=== PATIENT | female | born 1985 | race African-American/Black ===

== ENCOUNTER 2024-10-16 17:21 | Emergency (ER) | payer MEDICAID ==
[2024-10-16] MEDS ORDERED: FAMOTIDINE 20 MG TAB ONE (18:04)
[2024-10-16] MEDS ORDERED: METHYLPREDNISOLONE 125 MG INJ ONE (18:04)
[2024-10-16] MEDS ORDERED: CETIRIZINE HCL 5 MG TABLET ONE (18:07)
--- NOTE | 2024-10-16 18:15 | EDPHYS ---
Physician Documentation [facility] Name: Dalia Castillo Age: 39 yrs Sex: Female : 1985 Arrival Date: 10/16/2024 Time: 17:21 Bed DX3 Private MD: ED Physician Dm Hood HPI: 10/16 17:48 This 39 yrs old Black Female presents to ER via Ambulatory with complaints of Rash. rn 17:48 The patient's rash thought to be caused by an unknown cause. rn 17:48 The rash is located on the body diffusely. The rash can be described as urticarial. rn Onset: The symptoms/episode began/occurred 3 day(s) ago. Severity of symptoms: At their worst the symptoms were mild in the emergency department the symptoms are unchanged. The patient has not experienced similar symptoms in the past. Patient reports rash and itching with hives for a few days now. Possibly a week now. Patient reports took naproxen recently and thinks that is what caused it. No fever or chills. Patient states Benadryl just makes her sleepy but not helping the itching. Patient states has had this before and steroids usually help.. Historical: - Allergies: 17:30 Ibuprofen; ld1 17:30 Naproxen; ld1 - Home Meds: 17:30 None [Active]; ld1 - PMHx: 17:30 None; ld1 - PSHx: 17:30 None; ld1 - Immunization history:: Adult Immunizations up to date. - Infectious Disease History:: Denies. - Social history:: Smoking status: Patient denies any tobacco usage or history of. - Family history:: not pertinent. - Hospitalizations: : No recent hospitalization is reported. ROS: 17:48 Constitutional: Negative for fever, chills, and weight loss, Cardiovascular: Negative rn for chest pain, palpitations, and edema, Respiratory: Negative for shortness of breath, cough, wheezing, and pleuritic chest pain, Abdomen/GI: Negative for abdominal pain, nausea, vomiting, diarrhea, and constipation, MS/Extremity: Negative for injury and deformity, Skin: Positive for itching and rash Neuro: Negative for headache, weakness, numbness, tingling, and seizure, Exam: 17:48 Constitutional: This is a well developed, well nourished patient who is awake, alert, rn and in no acute distress. Cardiovascular: Regular rate and rhythm. No pulse deficits. Respiratory: No increased work of breathing, no retractions or nasal flaring. Skin: Warm, dry, no erythema, some urticaria and sparse excoriations. No bulla Vital Signs: 17:31 BP 154 / 99; Pulse 69; Resp 18; Temp 98.1(TE); Pulse Ox 97% on R/A; Weight 72.57 kg; ld1 Height 4 ft. 11 in. ; Pain 0/10; 17:31 Body Mass Index 32.32 (72.57 kg, 149.86 cm) ld1 17:31 Pain Scale: Adult ld1 MDM: 17:25 Medical Screening Exam initiated rn 17:48 Differential diagnosis: allergic reaction, Urticaria. Data reviewed: vital signs, rn nurses notes, and as a result, I will discharge patient. 18:14 Counseling: I had a detailed discussion with the patient and/or guardian regarding the rn historical points, exam findings, and any diagnostic results supporting the discharge/admit diagnosis, the need for outpatient follow up, to return to the emergency department if symptoms worsen or persist or if there are any questions or concerns that arise at home. Special discussion: I discussed with the patient/guardian in detail that at this point there is no indication for admission to the hospital. It is understood, however, that if the symptoms persist or worsen the patient needs to return immediately for re-evaluation. Administered Medications: 18:18 Drug: MethylPREDNISolone Sodium Succinate IM 125 mg IM once Route: IM; Site: right ss gluteus; 18:50 Follow up: Response: No adverse reaction ss 18:18 Drug: Famotidine PO 20 mg PO once Route: PO; ss 18:50 Follow up: Response: No adverse reaction ss 18:18 Not Given (Other Intervention Used): [id number] mg PO once ss 18:18 Drug: Cetirizine PO 10 mg PO once Route: PO; ss 18:50 Follow up: Response: No adverse reaction ss Disposition Summary: 10/16/24 18:15 Discharge Ordered Notes: Location: Home rn Problem: new rn Symptoms: have improved rn Condition: Stable rn Diagnosis - Rash and other nonspecific skin eruption rn Followup: rn - With: Private Physician - When: As needed - Reason: Recheck today's complaints, Re-evaluation by your physician Discharge Instructions: - Discharge Summary Sheet rn - Rash, Adult rn Forms: - Medication Reconciliation Form rn - Antibiotic rn triage - Prescription Opioid Use rn - Patient Portal Instructions rn - Leadership Thank You Letter rn Prescriptions: - Hydroxyzine HCl 50 mg Oral Tablet - take 1 tablet ORAL route every 8 hours As needed; 20 tablet; Refills: 0, rn Product Selection Permitted - Prednisone 20 mg Oral Tablet - take 3 tablets ORAL route once daily for 5 days; 15 tablet; Refills: 0, Product rn Selection Permitted Signatures: Dm Hood MD MD rn Blanchard, Shelby, RN RN ss Sonam Buchanan RN RN ld1 Corrections: (The following items were deleted from the chart) 17:49 17:48 Constitutional: This is a well developed, well nourished patient who is awake, rn alert, and in no acute distress. Cardiovascular: Regular rate and rhythm. No pulse deficits. Skin: Warm, dry, no erythema, some urticaria and sparse excoriations. No bulla rn
--- NOTE | 2024-10-16 18:15 | ER ---
Nurse's Notes [facility] Name: Dalia Castillo Age: 39 yrs Sex: Female : 1985 Arrival Date: 10/16/2024 Time: 17:21 Bed DX3 Private MD: Diagnosis: Rash and other nonspecific skin eruption Presentation: 10/16 17:31 Chief complaint: Patient states: Rash to face, arms, neck, chest, hands - 3 days ago. ld1 Coronavirus screen: At this time, the client does not indicate any symptoms associated with coronavirus-19. Ebola Screen: No symptoms or risks identified at this time. Initial Sepsis Screen: Does the patient meet any 2 criteria? No. Patient's initial sepsis screen is negative. Does the patient have a suspected source of infection? No. Patient's initial sepsis screen is negative. Risk Assessment: Do you want to hurt yourself or someone else? Patient reports no desire to harm self or others. Onset of symptoms was October 16, 2024. 17:31 Method Of Arrival: Ambulatory ld1 17:31 Acuity: AUTUMN 4 ld1 Triage Assessment: 17:31 General: Appears in no apparent distress. comfortable, Behavior is calm, cooperative, ld1 appropriate for age. Pain: Denies pain. EENT: No signs and/or symptoms were reported regarding the EENT system. Neuro: Level of Consciousness is awake, alert, obeys commands, Oriented to person, place, time, situation. Cardiovascular: Capillary refill < 3 seconds Patient's skin is warm and dry. Respiratory: Airway is patent Respiratory effort is even, unlabored. GI: Abdomen is round non-distended. : No signs and/or symptoms were reported regarding the genitourinary system. Derm: Rash noted that is itchy, raised. Musculoskeletal: No signs and/or symptoms reported regarding the musculoskeletal system. Historical: - Allergies: 17:30 Ibuprofen; ld1 17:30 Naproxen; ld1 - Home Meds: 17:30 None [Active]; ld1 - PMHx: 17:30 None; ld1 - PSHx: 17:30 None; ld1 - Immunization history:: Adult Immunizations up to date. - Infectious Disease History:: Denies. - Social history:: Smoking status: Patient denies any tobacco usage or history of. - Family history:: not pertinent. - Hospitalizations: : No recent hospitalization is reported. Assessment: 18:51 Reassessment: Patient appears in no apparent distress at this time. Patient and/or ss family updated on plan of care and expected duration. Pain level reassessed. Patient is alert, oriented x 3, equal unlabored respirations, skin warm/dry/pink. Patient states feeling better. Patient states symptoms have improved. Vital Signs: 17:31 BP 154 / 99; Pulse 69; Resp 18; Temp 98.1(TE); Pulse Ox 97% on R/A; Weight 72.57 kg; ld1 Height 4 ft. 11 in. ; Pain 0/10; 17:31 Body Mass Index 32.32 (72.57 kg, 149.86 cm) ld1 17:31 Pain Scale: Adult ld1 ED Course: 17:23 Patient arrived in ED. mr 17:25 Dm Hood MD is Attending Physician. rn 17:31 Arm band placed on right wrist. ld1 17:32 Triage completed. ld1 18:17 Hali Josue RN is Primary Nurse. ss 18:50 No provider procedures requiring assistance completed. Patient did not have IV access ss during this emergency room visit. Administered Medications: 18:18 Drug: MethylPREDNISolone Sodium Succinate IM 125 mg IM once Route: IM; Site: right ss gluteus; 18:50 Follow up: Response: No adverse reaction ss 18:18 Drug: Famotidine PO 20 mg PO once Route: PO; ss 18:50 Follow up: Response: No adverse reaction ss 18:18 Not Given (Other Intervention Used): [id number] mg PO once ss 18:18 Drug: Cetirizine PO 10 mg PO once Route: PO; ss 18:50 Follow up: Response: No adverse reaction ss Outcome: 18:15 Discharge ordered by . rn 18:50 Discharged to home ambulatory, with family, ss 18:50 Condition: good 18:50 Discharge instructions given to patient, family, Instructed on discharge instructions, follow up and referral plans. medication usage, Demonstrated understanding of instructions, follow-up care, medications, Prescriptions given X 2, 18:51 Patient left the ED. ss Signatures: Ondina Rai, Reg Reg mr Dm Hood MD MD rn Blanchard, Shelby, RN RN Buchanan, Sonam, RN RN ld1
[2024-10-16 19:22] VITALS: BP 154/99; TEMP 98.1; O2SAT 97
== END 2024-10-16 18:51 | disposition home or self-care (01) ==
LOC: ER 17:21
DX: R21 Rash and other nonspecific skin eruption (principal)
CPT/HCPCS: J2919